=== PATIENT | female | born 1990 | race Caucasian/White ===

== ENCOUNTER 2019-03-26 13:09 | Emergency (ER) | payer MEDICAID, OTHER ==
[~2019-03-26] VITALS: Ht 157.5 cm; Wt 136.1 kg
[2019-03-26 14:03] VITALS: BP 146/83
== END 2019-03-26 15:03 | disposition home or self-care (01) ==
LOC: ER 13:09
DX: M25.562 Pain in left knee (principal); M25.552 Pain in left hip; Z88.5 Allergy status to narcotic agent
CPT/HCPCS: 73562